=== PATIENT | female | born 1970 | race Caucasian/White ===

== ENCOUNTER 2016-09-09 21:47 | Emergency (ER) | payer BC ==
--- NOTE | 2016-09-09 22:00 | Emergency Department Record ---
History of Present Illness - General Chief complaint: ENT Stated complaint: LEFT EAR PAIN Time Seen by Provider: 09/09/16 21:59 Source: Patient Mode of Arrival: Ambulatory Limitations: No limitations - History of Present Illness Initial comments: The patient is here due to pain below her L ear near her TMJ for almost a week. She denies any cough, runny nose, fever, ear drainage but has had a mild ST. She is concerned about an ear infection. MD complaint: Ear pain Onset/Timin -: Days(s) Location: L ear Severity: Mild Quality: Aching Consistency: Constant - Related Data Previous Rx's Medication Instructions Recorded Prednisone [Prednisone 20Mg] 40 mg PO DAILY #6 tab 09/09/16 Allergies Allergy/AdvReac Type Severity Reaction Status Date / Time hydrocodone bitartrate Allergy HIVES Verified 09/09/16 21:52 [From Vicodin] hydromorphone HCl Allergy VOMITING Verified 09/09/16 21:52 [From Dilaudid] Sulfa (Sulfonamide Allergy RASH Verified 05/30/14 18:37 Antibiotics) Review of Systems Constitutional: Denies: Chills, Fever Eyes: Denies: Eye discharge ENT: Reports: Congestion (chronic.), Ear pain. Denies: Dental pain Respiratory: Denies: Cough Cardiovascular: Denies: Chest pain Endocrine: Denies: Fatigue Past Medical History - SOCIAL HISTORY Smoking Status: Current every day smoker Alcohol Use: None - RESPIRATORY Hx Respiratory Disorders: No - CARDIOVASCULAR Hx Cardio Disorders: No Physical Exam - General General Appearance: Alert, Oriented x3, Cooperative, No acute distress - Head Head exam: Atraumatic, Normocephalic, Normal inspection - Eye Eye exam: Normal appearance, PERRL, EOMI - ENT ENT exam: Normal exam, Mucous membranes moist, Normal external ear exam, Normal orophraynx, TM's normal bilaterally (the TM's have no erythema or loss of landmarks.) Throat exam: Tonsillar erythema (mild.). negative: Normal inspection, Tonsillomegaly, Tonsillar exudate - Neck Neck exam: Normal inspection, Full ROM, Tenderness (Thre is tenderness to the L angle of the mandible just posterior to the TMJ. There is no swelling or erythema present.). negative: Lymphadenopathy, Meningismus - Respiratory Respiratory exam: Normal lung sounds bilaterally. negative: Respiratory distress - Cardiovascular Cardiovascular Exam: Regular rate, Normal rhythm, Normal heart sounds Course Vital Signs 09/09/16 21:52 Temperature 98.0 F Pulse Rate [ 95 H Pulse Ox Probe] Respiratory 18 Rate Blood Pressure 120/73 [Left Arm] Pulse Ox 96 - Reevaluation(s) Reevaluation #1: I did discuss the plan with the patient. The Rapid Strep is Neg and the middle ear is normal. She is to continue her Flonase and add the Prednisone and see her PCP if not better by Tuesday. 09/09/16 22:39 Medical Decision Making - Data Complexity MDM Data: Labs Ordered and/or Reviewed (Rapid Strep: Neg.) Disposition Disposition: Discharge Clinical Impression: Neck pain, acute Disposition: Home, Self-Care Condition: (1) Good Instructions: Pharyngitis (ED) Additional Instructions: Please continue your home Flonase and continue the Prednisone as directed. Please use Tylenol for pain if needed and see your PCP next week if not better. Return to the ER for any increased pain, fever, or trouble breathing. Prescriptions: Prednisone [Prednisone 20Mg] 40 mg PO DAILY #6 tab Forms: Patient Portal Access Time of Disposition: 22:38
[2016-09-09] MEDS: PREDNISONE 20 MG TAB PO ONE (22:43)
== END 2016-09-09 22:45 | disposition home or self-care (01) ==
LOC: ER 21:47
DX: M54.2 Cervicalgia (principal); H92.02 Otalgia, left ear; J02.9 Acute pharyngitis, unspecified
CPT/HCPCS: 87880; J7512; 99282